=== PATIENT | female | born 1960 | race Caucasian/White ===

== ENCOUNTER 2017-04-14 11:53 | Emergency (ER) | payer BC ==
[2017-04-14 12:05] VITALS: BP 143/84
--- NOTE | 2017-04-14 14:03 | RAD ---
Fifth metatarsal pain on the right foot. 3 views of the right foot demonstrates inferior and posterior calcaneal spur. No fracture is identified. IMPRESSION: Inferior and posterior calcaneal spur without fracture.
--- NOTE | 2017-04-14 16:24 | UC ---
Lower Extremity/Ankle HPI - HPI Summary HPI Summary: Patient presents with lateral and dorsum of foot pain s/p fall yesterday. She is unsure the mechanism of injury but stated she had immediate pain upon the fall. She was able to ambulate, although states she was limping and not wanting to bear weight. She was able to ice and elevate the area last night, but continues with pain today. She denies hitting head or LOC. She is on her feet for work and states she is nervous about returning if the foot was fractured. There is no ecchymosis noted, but slight swelling over the dorsum of the foot. Patient denies numbness, tingling. Denies radiation of pain. No pain noted over the toes or knee. - History of Current Complaint Chief Complaint: UCLowerExtremity Stated Complaint: FOOT INJURY Time Seen by Provider: 04/14/17 12:59 Hx Obtained From: Patient ?: No Onset/Duration: Sudden Onset Severity Initially: Moderate Severity Currently: Moderate Pain Intensity: 4 Pain Scale Used: 0-10 Numeric Aggravating Factor(s): Standing, Ambulation Alleviating Factor(s): Rest, Elevation Able to Bear Weight: Yes - Risk Factors Gout Risk Factors: Age Over 40 DVT Risk Factors: Negative Septic Arthritis Risk Factor: Negative - Allergies/Home Medications Allergies/Adverse Reactions: Allergies Allergy/AdvReac Type Severity Reaction Status Date / Time Erythromycin Allergy Rash Verified 04/14/17 12:02 Home Medications: Home Medications Fluvastatin Sodium [Fluvastatin Sodium ER] 04/14/17 [History] Levothyroxine TAB* [Synthroid TAB*] 225 mcg 04/14/17 [History] Loratadine [Claritin 10 MG CAP] 04/14/17 [History] PMH/Surg Hx/FS Hx/Imm Hx Previously Healthy: Yes - Surgical History Surgical History: None - Family History Known Family History: Positive: Unknown - Social History Occupation: Employed Full-time Alcohol Use: None Substance Use Type: None Smoking Status (MU): Former Smoker Review of Systems Constitutional: Negative Skin: Negative Respiratory: Negative Cardiovascular: Negative Motor: Negative Neurovascular: Negative Musculoskeletal: Arthralgia - right dorsum foot pain Neurological: Negative Psychological: Negative All Other Systems Reviewed And Are Negative: Yes Physical Exam Triage Information Reviewed: Yes Appearance: Well-Appearing, No Pain Distress, Well-Nourished Vital Signs: Initial Vital Signs Temp 98.7 F 04/14/17 12:04 Pulse 87 04/14/17 12:04 Resp 16 04/14/17 12:04 BP 143/84 04/14/17 12:04 Pulse Ox 97 04/14/17 12:04 Vital Signs Reviewed: Yes Eye Exam: Normal Neck exam: Normal Neck: Positive: Supple, Nontender Respiratory: Positive: Chest non-tender, Lungs clear Cardiovascular: Positive: RRR Musculoskeletal: Positive: ROM Limited @ - right dorsum of foot Neurological Exam: Normal Neurological: Positive: Alert Psychological Exam: Normal Psychological: Positive: Normal Response To Family Skin Exam: Normal Lower Extremity Course/Dx - Course Course Of Treatment: xray negative for acute findings. calcaneal spur. patient made aware, but denies pain. s/p fall, able to bear weight, but with pain. jose j wrapped for comfort. swelling over the dorsum of the foot likely a deltoid ligament strain or sprain. patient is encouarged to follow up with Dr. Cruz's office. Patient is OK with discharge. - Differential Dx/Diagnosis Differential Diagnosis/HQI/PQRI: Fracture (Closed), Sprain, Strain, Tendonitis Provider Diagnoses: Right foot strain Discharge - Discharge Plan Condition: Stable Disposition: HOME Patient Education Materials: Foot Sprain (ED) Referrals: Reyna Boo MD [Primary Care Provider] - Yobani Cruz MD [Medical Doctor] - Additional Instructions: Follow up with PCP or orthopedics. Ice and elevation Ibuprofen 600mg three times daily If you develop worsening symptoms, return to UC
== END 2017-04-14 14:31 | disposition home or self-care (01) ==
LOC: UCEAST 11:53
DX: S96.911A Strain of unspecified muscle and tendon at ankle and foot level, right foot, initial encounter (principal); W19.XXXA Unspecified fall, initial encounter; Y93.9 Activity, unspecified; Y92.9 Unspecified place or not applicable
CPT/HCPCS: 99212; G0463

== ENCOUNTER 2018-08-16 15:04 | Emergency (ER) | payer BC ==
[2018-08-16] MEDS ORDERED: Famotidine TAB* 20 MG PO ONE (15:10)
[2018-08-16] MEDS ORDERED: Metoprolol Tartrate IV* 1 MG/ML 5 ML VIAL IV ONE (15:10)
[2018-08-16] MEDS ORDERED: Aspirin 81 mg CHEW TAB* 81 MG TAB.CHEW PO ONE (15:10)
--- NOTE | 2018-08-16 15:26 | ED ---
HPI Chest Pain - HPI Summary HPI Summary: This patient is a 58 year old F presenting to [facility] with a chief complaint of a warm sensation in her chest since yesterday evening. Pt states the sensation came back this morning but is not as severe. She states the sensation waxes and wanes. Pt also states she feels flush. She denies coughing, fever, abdominal pain, and dyspnea. Pt began to have hot flashes this year but states this does not feel like a hot flash. Pt denies leg pain or lower extremety edema. Pt denies hx of cardiac disease, HTN, and diabetes. - History of Current Complaint Chief Complaint: EDChestPainROMI Time Seen by Provider: 08/16/18 15:09 Hx Obtained From: Patient Onset/Duration: Started Days Ago Timing: Intermittent Initial Severity: Mild Current Severity: Mild Pain Intensity: 2 Pain Scale Used: 0-10 Numeric Chest Pain Location: Diffuse Chest Pain Radiates: No Character: Other: - warm sensation Aggravating Factor(s): Nothing Alleviating Factor(s): Nothing Associated Signs and Symptoms: Positive: Other: - Pt feels flush. Negative: Chest Pain, Fever, Chills - Allergy/Home Medications Allergies/Adverse Reactions: Allergies Allergy/AdvReac Type Severity Reaction Status Date / Time erythromycin base Allergy Rash Verified 08/16/18 15:05 PMH/Surg Hx/FS Hx/Imm Hx Endocrine/Hematology History: Reports: Hx Thyroid Disease Denies: Hx Diabetes Cardiovascular History: Denies: Hx Hypertension, Hx Pacemaker/ICD Musculoskeletal History: Denies: Hx Rheumatoid Arthritis, Hx Osteoporosis Sensory History: Denies: Hx Hearing Aid Psychiatric History: Denies: Hx Panic Disorder - Cancer History Hx Chemotherapy: No Hx Radiation Therapy: No Infectious Disease History: No Infectious Disease History: Denies: Traveled Outside the [place] in Last 30 Days - Family History Known Family History: Positive: Cardiac Disease - Father - Social History Alcohol Use: None Substance Use Type: Reports: None Smoking Status (MU): Former Smoker Review of Systems Negative: Fever, Skin Diaphoresis Positive: Other - Warm sensation in chest. Negative: Shortness Of Breath, Cough Negative: Abdominal Pain Positive: Other - Negative: Lower extremity pain. . Negative: Edema Positive: Other - Warm sensation in chest. All Other Systems Reviewed And Are Negative: Yes Physical Exam - Summary Physical Exam Summary: Appearance: Comfortable appearing, no pain distress Skin: warm, dry, reflects adequate perfusion. Flushing in upper chest. Head/face: normal Eyes: EOMI, NICOLAS ENT: mucous membranes moist Neck: supple, non-tender Respiratory: CTA, breath sounds present Cardiovascular: RRR, pulses symmetrical Abdomen: non-tender, soft Bowel Sounds: present Musculoskeletal: normal, strength/ROM intact. No lower extremity edema. Neuro: normal, sensory motor intact, A&Ox3 Triage Information Reviewed: Yes Vital Signs On Initial Exam: Initial Vitals Temp Pulse Resp BP Pulse Ox 98.2 F 84 16 167/85 94 08/16/18 15:05 08/16/18 15:05 08/16/18 15:05 08/16/18 15:05 08/16/18 15:05 Vital Signs Reviewed: Yes Diagnostics - Vital Signs Vital Signs Temp Pulse Resp BP Pulse Ox 08/16/18 15:17 98 08/16/18 15:15 83 97 08/16/18 15:05 98.2 F 84 16 167/85 94 - Laboratory Result Diagrams: 08/16/18 15:25 08/16/18 15:25 Lab Statement: Any lab studies that have been ordered have been reviewed, and results considered in the medical decision making process. - Radiology Chest XR Xray Interpretation: No Acute Changes Radiology Interpretation Completed By: Radiologist - No evidence for acute intrathoracic disease. ED Provider has reviewed this report. - EKG 1514 Cardiac Rate: NL - 79 BPM EKG Rhythm: Sinus Rhythm ST Segment: Non-Specific EKG Interpretation: Normal axis Normal interval Re-Evaluation - Re-Evaluation First Eval Re-Evaluation Time: 15:57 Change: Improved - Discussed results and plan for discharge. Chest Pain Course/Dx - Course Course Of Treatment: She'll with anterior chest flushing and burning discomfort in the area. This is greatly improved with Pepcid. Vital signs improved with blood pressure now 150. EKG is normal with troponin, d-dimer nondetectable. This appears likely hormonal patient states that she has been having increased bouts of flushing in the last year. She is instructed to follow-up with her primary care physician for hormonal testing and possible replacement therapy. - Chest Pain Differential Diagnosis/HQI/PQRI: ACS, Chest Wall, GI Disease, Lower Respiratory Infection, Pulmonary Embolism - Diagnoses Provider Diagnoses: Atypical chest pain, Flushing Discharge - Sign-Out/Discharge Documenting (check all that apply): Patient Departure - Discharge - Discharge Plan Condition: Improved Disposition: HOME Prescriptions: Famotidine TAB* [Pepcid 20 MG TAB*] 20 mg PO BID #10 tab Patient Education Materials: Chest Pain (ED) Referrals: Reyna Boo MD [Primary Care Provider] - Additional Instructions: Hydrocortisone may help. Call on Saturday morning to schedule follow-up appointment with your doctor. Pepcid is good for flushing and redness and can be augmented by oral Benadryl. Benadryl however can be sedating. Return if worse, new symptoms or other concerns. - Billing Disposition and Condition Condition: IMPROVED Disposition: Home - Attestation Statements Document Initiated by Kary: Yes Documenting Scribe: Nael Astorga Provider For Whom Kary is Documenting (Include Credential): Edwin You MD Scribe Attestation: Nael Bedoya, scribed for Edwin You MD on 08/16/18 at 1656. Scribe Documentation Reviewed: Yes Provider Attestation: The documentation as recorded by the scribeNael accurately reflects the service I personally performed and the decisions made by me, Edwin You MD
[2018-08-16 15:34] LABS: ABS Basophils 0.1 10^3/ul (0-0.2); ABS Eosinophils 0.3 10^3/ul (0-0.6); ABS Monocytes 0.7 10^3/ul (0-0.8); ABS Neutrophils 5.3 10^3/ul (1.5-7.7); ABS Nucleated RBC 0.1 10^3/ul; Eosinophil % 2.6 % (0-6); Hematocrit 46 % (35-47); Hemoglobin 15.7 g/dl (12.0-16.0); Lymphocyte % 38.6 % (25-47); Mean Corpuscular HGB Conc 34 g/dl (31-36); Mean Corpuscular Hemoglobin 29 pg (27-31); Mean Corpuscular Volume 83 fL (80-97); Nucleated Red Blood Cells % 0.8; Platelet Count 325 10^3/ul (150-450); Red Blood Count 5.49 10^6/ul (4.00-5.40); Red Cell Distribution Width 14 % (10.5-15); White Blood Count 10.3 10^3/ul (3.5-10.8)
[2018-08-16 15:41] LABS: INR 0.89 (0.77-1.02)
[2018-08-16 15:49] LABS: EGFR Non-African American 100.4 (>60)
--- NOTE | 2018-08-16 15:56 | RAD ---
Indication: Chest discomfort since last night. Comparison: December 29, 2014 Technique: Upright AP 1544 hours Report: Obese body habitus limits image quality. Grossly clear lungs and pleural spaces. Negative for pneumothorax. Negative for cardiomegaly. Unremarkable central pulmonary vasculature and mediastinal contours. IMPRESSION: #. No evidence for acute intrathoracic disease.
[2018-08-16] MEDS ORDERED: diPHENhydraMINE PO* 25 MG PO ONE (15:57)
[2018-08-16 16:28] VITALS: BP 142/85
== END 2018-08-16 16:27 | disposition home or self-care (01) ==
LOC: ED 15:04
DX: R07.89 Other chest pain (principal); R23.2 Flushing; Z87.891 Personal history of nicotine dependence
CPT/HCPCS: 36415; 71045; 80053; 83605; 83880; 84484; 85025; 85379; 85610; 93005; 99283; A9270-GY